=== PATIENT | female | born 1945 | race Caucasian/White ===

== ENCOUNTER 2017-10-26 08:04 | Emergency (ER) | payer MEDICARE, OTHER ==
[~2017-10-26] VITALS: Ht 154.9 cm; Wt 70.5 kg
[~2017-10-26 08:04] MED LIST: ALBU18HF2 IH; LISI-600 PO; PRED20TA PO; SIMV20TA5 PO; [UNRECOGNIZED DRUG - REMARK]
[2017-10-26 08:08] VITALS: BP 162/72
[2017-10-26] MEDS ORDERED: TOBR5DRO2 OP (08:23)
== END 2017-10-26 08:36 | disposition home or self-care (01) ==
LOC: ER 08:04
DX: H10.9 Unspecified conjunctivitis (principal); I10 Essential (primary) hypertension; E78.00 Pure hypercholesterolemia, unspecified; Z88.4 Allergy status to anesthetic agent
CPT/HCPCS: 99283

== ENCOUNTER 2018-06-23 11:07 | Emergency (ER) | payer MEDICARE ==
[~2018-06-23 11:07] MED LIST changes: +TOBR5DRO2 OP
== END 2018-06-23 11:59 | disposition left against medical advice (07) ==
LOC: ER 11:08
DX: J30.1 Allergic rhinitis due to pollen (principal); Z53.21 Procedure and treatment not carried out due to patient leaving prior to being seen by health care provider; Z79.899 Other long term (current) drug therapy